=== PATIENT | male | born 1975 | race American Indian/Alaskan Native ===

== ENCOUNTER 2017-12-19 09:24 | Emergency (ER) | payer OTHER ==
[2017-12-19 09:55] VITALS: BP 127/88
[2017-12-19] MEDS ORDERED: TYLENOL PO ONE (13:13)
[2017-12-19] MEDS ORDERED: TORADOL IM ONE (13:18)
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
== END 2017-12-19 14:59 | disposition home or self-care (01) ==
LOC: ED 09:24
DX: M54.5 Low back pain (principal); M25.512 Pain in left shoulder; M25.562 Pain in left knee; F17.200 Nicotine dependence, unspecified, uncomplicated